=== PATIENT | male | born 1950 | race Caucasian/White ===

== ENCOUNTER → 2018-10-24 | Outpatient (CLI) | payer MEDICARE ==
[~2018-10-24] MED LIST: ALLOPURINOL300 MG PO; CLONAZEPAM0.5 MG PO; CYCLOBENZAPRINE10 MG PO; DIOVAN HCT 1601 EACH PO; DIVALPROEX SOD250 M1 PO; ESCITALOPRAM OX20 MG PO; KEFLEX500 MG; METFORMIN HCL1000 MG PO; MOBIC7.5 MG PO; PANTOPRAZOLE SO40 MG PO; SINGULAIR10 MG PO; TYLENOL WITH C1 EACH PO
--- NOTE | 2018-10-24 15:33 | Diagnostic Imaging Report ---
Bone Scan, delayed phase INDICATION: Prostate cancer; staging. Left shoulder pain x3 weeks. COMPARISON: Prior bone scan 07/28/2013; no recent cross-sectional body imaging REPORT: Approximately 3 hours following intravenous administration of 27.5 mCi of Tc-99m MDP, delayed total body images in the anterior and posterior projections and selected spot images were obtained. Single focus of markedly increased tracer is seen at the inferior tip of the right scapula. Degenerative changes are noted in the lower lumbar spine and in the hands. Otherwise, distribution of tracer activity is unremarkable throughout the skeletal system. No abnormal accumulation of tracer is seen in the soft tissues or urinary tract. IMPRESSION: 1. Acute osteoblastic process in the inferior tip of the right scapula is nonspecific in appearance but worrisome for solitary bone metastasis. It was not present on the prior bone scan of 07/28/2013. Correlation with CT is warranted. 2. No acute osteoplastic process in the left shoulder to suggest an etiology of the patient's left shoulder pain. Signed by: Dr. Helena Payne M.D. on 10/24/2018 3:30 PM
== END ==
LOC: NM 07:54
PROVIDERS: ATTEND Internal Medicine Medical Oncology
DX: C61 Malignant neoplasm of prostate (principal)
CPT/HCPCS: 78306; A9503

== ENCOUNTER → 2019-07-15 | Day surgery (SDC) | payer MEDICARE ==
[2019-07-11 11:51] LABS: BASOPHILS # (AUTO) 0.1 (0.0-0.1); BASOPHILS % 1.2 % (0.0-1.0); EOSINOPHILS # (AUTO) 0.5 (0.0-0.4); EOSINOPHILS % 5.6 % (0.0-6.0); HEMATOCRIT 40.8 % (38.2-49.6); HEMOGLOBIN 13.6 g/dL (14.0-18.0); LYMPHOCYTES # (AUTO) 1.8 (1.0-3.2); LYMPHOCYTES % 21.9 % (18.0-39.1); MEAN CORPUSCULAR HEMOGLOBIN 29.4 pg (28-32); MEAN CORPUSCULAR HGB CONC 33.3 g/dL (31-35); MEAN CORPUSCULAR VOLUME 88.3 fL (81-99); MONOCYTES # (AUTO) 0.7 (0.2-0.8); MONOCYTES % 8.4 % (4.4-11.3); NEUTROPHILS # (AUTO) 5.2 (2.1-6.9); NEUTROPHILS % 62.7 % (38.7-80.0); PLATELET COUNT 359 x10e3/uL (140-360); RED BLOOD COUNT 4.62 x10e6/uL (4.3-5.7); RED CELL DISTRIBUTION WIDTH 12.7 % (11.7-14.4)
[2019-07-11 12:13] LABS: ALANINE AMINOTRANSFERASE 11 IU/L (0-55); ALBUMIN 3.9 g/dL (3.5-5.0); ALBUMIN/GLOBULIN RATIO 1.1 (0.8-2.0); ALKALINE PHOSPHATASE 105 IU/L (40-150); ANION GAP 15.8 mmol/L (8-16); BLOOD UREA NITROGEN 12 mg/dL (7-26); BUN/CREATININE RATIO 14 (6-25); CALCIUM 10.4 mg/dL (8.4-10.2); CARBON DIOXIDE 29 mmol/L (22-29); CHLORIDE 100 mmol/L (98-107); CREATININE, SERUM 0.84 mg/dL (0.72-1.25); EST GLOMERULAR FILTRATION RATE > 60 ML/MIN (60-); GLUCOSE 150 mg/dL (74-118); POTASSIUM 4.8 mmol/L (3.5-5.1); SODIUM 140 mmol/L (136-145)
[2019-07-15] VITALS (10 sets, daily range): BP systolic 148–168; BP diastolic 67–79
[~2019-07-15] VITALS: Ht 177.8 cm; Wt 81.6 kg
[~2019-07-15] MED LIST changes: +ALPRAZOLAM 0.5 MG TAB ONE; +AMLODIPINE BESYL5 MG PO; +ASPIR 8181 MG PO; +ASPIRIN 325 MG TAB ONE; +CLOPIDOGREL75 MG PO; +DIPHENHYDRAMINE HCL 25 MG CAP ONE; +FENTANYL CITRATE/PF 100MCG/2 ML INJ ONE; +HEPARIN SOD/SOD CHLORIDE 2,000 ML ONE; +HYDROCHLOROTHIA25 MG PO; +IOPAMIDOL 300MG/ML 100 ML INFUS..BTL IV ONE; +LANTUS 3ML100 UNITS/ SC; +LIDOCAINE HCL 2% LOCAL 20 ML VIAL ONE; +LOSARTAN POTAS100 MG PO; +MIDAZOLAM HCL 2 MG/2 ML VIAL ONE; +NAMENDA10 MG PO; +PRASUGREL 10 MG TAB ONE; +PRAVASTATIN SOD40 MG PO; +SODIUM CHLORIDE 0.9% 1000ML 1,000 ML ONE; +VERAPAMIL HCL 2.5 MG/ML 2 ML VIAL ONE; +XTANDI40 MG PO; +[UNRECOGNIZED DRUG - OTHER] PO
--- OUTSIDE RECORDS SUMMARY | 2019-07-15 13:14 | XMS REPORT ---
Author Author [facility] Address Unknown Phone Unavailable Care Team Providers Care [employer] Name Role Phone JD GONZALEZ Unavailable Unavailable Problems This patient has no known problems. Allergies, Adverse Reactions, Alerts This patient has no known allergies or adverse reactions. Medications This patient has no known medications. Results Test Description Test Time Test Comments Text Results Atomic Results Result Comments BONE and/or JOINT WHOLE BODY 2018-10-24 15:18:00 [place] [address] Patient Name: LINDSEY MELTON MR #: [id number] : 1950 Age/Sex: 67/M Req #: [id number] [facility] Physician: Ordered by: JD GONZALEZ MD Report #: [id number] Location: [place] Room/Bed: Procedure: [id number] NM/BONE and/or JOINT WHOLE BODY Exam Date: 10/24/18 Exam Time: 0810 REPORT STATUS: Signed Bone Scan, delayed phase INDICATION: Prostate cancer; staging. Left shoulder pain x3 weeks. COMPARISON: Prior bone scan 07/28/2013; no recent cross-sectional body imaging REPORT: Approximately 3 hours following intravenous administration of 27.5 mCi of Tc-99m MDP, delayed total body images in the anterior and posterior projections and selected spot images were obtained. Single focus of markedly increased tracer is seen at the inferior tip of the right scapula. Degenerative changes are noted in the lower lumbar spine and in the hands. Otherwise, distribution of tracer activity is unremarkable throughout the skeletal system. No abnormal accumulation of tracer is seen in the soft tissues or urinary tract. IMPRESSION: 1. Acute osteoblastic process in the inferior tip of the right scapula is nonspecific in appearance but worrisome for solitary bone metastasis. It was not present on the prior bone scan of 07/28/2013. Correlation with CT is warranted. 2. No acute osteoplastic process in the left shoulder to suggest an etiology of the patient's left shoulder pain. Signed by: Dr. Piyush Larose M.D. on 10/24/2018 3:30 PM Dictated By: PIYUSH LAROSE MD 1530 Transcribed By: JANEEN on 10/24/18 1530 COPY TO: JD GONZALEZ MD
--- NOTE | 2019-07-15 16:15 | NUR ---
bedside report received from Lenny Kingston RN. Alert oriented and appropriate, PERRLA, respirations even and unlabored to room air. Pulses x4 extremities equal and faint. Cap fill brisk < 3 sec , + neurovascular function to right hand. Skin warm and dry integrity appears intact. IV 20g to left forearm presents healthy w/o s/s of infiltration or complaint. Abdomen soft and supple. pt offered toileting, denies need to urinate or defecate. Personal affects with patient. Family called to bedside. Pt and family verbalizes understanding of POC for discharge. right wrist precaution teaching initiated. pt on bedside cardiac/quality assurance monitor. Currently w/o complaint of pain or need. Nutrition and fluids provided. bed low and locked, side rails up x 2 , call light within reach.-cgf
--- NOTE | 2019-07-15 18:00 | NUR ---
TR band removal attempt started.
--- NOTE | 2019-07-15 18:30 | NUR ---
TR band with some oozing after 3 rd attempt to remove air. discussed manual hold with pt/family.
--- NOTE | 2019-07-15 19:00 | NUR ---
TR band removed and manual pressure applied for 20 minutes. hemostasis achieved. Wrist reminder applied. + neurovascular function present to right wrist. VS normal/stable for patient trend
--- NOTE | 2019-07-15 19:20 | NUR ---
Pt meets DC criteria. right radial assessed for s/s of complication and presence of hematoma. + neurovascular function intact. overall skin warm, dry, no discolor, and pulses present. IV removed from left forearm. Distal tip appears intact. VS WNL. Pt denies pain, sob, or need at this time. Family at bedside. Right wrist reminder applied per pt/family request. reinforced removal in AM. Review of discharge paperwork and follow up instructions. verbalized understanding. Pt to wheelchair and transported to front of hospital. Transferred to private vehicle under own strength w/o incident with DC paperwork in hand. - cgf
--- NOTE | 2019-07-16 12:25 | Operative Report ---
DATE OF PROCEDURE: 07/15/2019 SURGEON: Herman Flood MD INDICATIONS: Peripheral arterial disease with claudication. PROCEDURES PERFORMED: 1. Abdominal aortogram with abdominal aorta catheter placement. 2. Bilateral lower extremity angiograms. 3. Third-order catheter placement from the right radial artery to the right femoral artery. 4. Additional third-order catheter placement from the right radial artery to the left femoral artery. 5. Atherectomy and stent placement of the right femoral artery. 6. Secondary thrombectomy of the right femoral artery. 7. Deployment of right wrist TR band. COMPLICATIONS: None. RECOMMENDATIONS: 1. Staged angioplasty on the right posterior tibial artery via right pedal approach. 2. Staged left superficial femoral artery atherectomy via right radial approach. 3. Staged left anterior and posterior tibial atherectomy via left pedal approach. BLOOD LOSS: 2 mL. DESCRIPTION OF PROCEDURE: Access obtained in the right radial artery. A 6-Maltese sheath was placed. Heparin was administered for anticoagulation. Abdominal aortogram demonstrated mild disease of the abdominal aorta and iliacs bilaterally. The catheter was then advanced to the right femoral artery, 99% mid right superficial femoral artery stenosis, 80% right posterior tibial artery stenosis. Anterior tibial artery is completely occluded. The catheter was then advanced to the left femoral artery, 80% left femoral artery stenosis. Anterior and posterior tibial arteries were completely occluded. Peroneal artery on the left, 90% stenosis. A decision was made to intervene on the right femoral artery. Orbital atherectomy using a 1.5 mm CSI device was performed. Large amounts of visible thrombus, for which manual aspiration secondary thrombectomy was needed. A single 6 x 60 mm Terumo Misago stent was deployed, post dilated with a 5 mm balloon. Excellent end result. Less than 10% residual stenosis. One vessel runoff to the right foot. No complications. Right wrist sheath was removed. TR band applied. The patient discharged home the same day. MD ERON PurcellB/MODL /[id number]
== END | disposition home or self-care (01) ==
LOC: CATH LAB 13:11
PROVIDERS: ATTEND Internal Medicine Interventional Cardiology
DX: I70.213 Atherosclerosis of native arteries of extremities with intermittent claudication, bilateral legs (principal); I70.92 Chronic total occlusion of artery of the extremities; I25.118 Atherosclerotic heart disease of native coronary artery with other forms of angina pectoris; R00.2 Palpitations; I10 Essential (primary) hypertension; C61 Malignant neoplasm of prostate; Z01.812 Encounter for preprocedural laboratory examination; Z79.02 Long term (current) use of antithrombotics/antiplatelets; Z79.82 Long term (current) use of aspirin; Z79.84 Long term (current) use of oral hypoglycemic drugs; Z79.4 Long term (current) use of insulin
CPT/HCPCS: 36247; 36415; 37186; 37227; 75625; 80053; 85025; C1724; C1769 ×3; J2001; J2250; J3010; J7030; Q9967; 75716; 99152; 99153

== ENCOUNTER → 2019-07-22 | Day surgery (SDC) | payer MEDICARE ==
[2019-07-21 14:43] LABS: BASOPHILS # (AUTO) 0.1 (0.0-0.1); EOSINOPHILS # (AUTO) 0.5 (0.0-0.4); HEMATOCRIT 36.2 % (38.2-49.6); HEMOGLOBIN 12.2 g/dL (14.0-18.0); LYMPHOCYTES # (AUTO) 2.1 (1.0-3.2); LYMPHOCYTES % 20.5 % (18.0-39.1); MEAN CORPUSCULAR HEMOGLOBIN 29.3 pg (28-32); MEAN CORPUSCULAR HGB CONC 33.7 g/dL (31-35); MONOCYTES # (AUTO) 0.9 (0.2-0.8); MONOCYTES % 8.5 % (4.4-11.3); NEUTROPHILS # (AUTO) 6.5 (2.1-6.9); NEUTROPHILS % 64.7 % (38.7-80.0); PLATELET COUNT 365 x10e3/uL (140-360); RED BLOOD COUNT 4.16 x10e6/uL (4.3-5.7); RED CELL DISTRIBUTION WIDTH 12.4 % (11.7-14.4)
[2019-07-21 15:04] LABS: ALANINE AMINOTRANSFERASE 9 IU/L (0-55); ALBUMIN 3.5 g/dL (3.5-5.0); ALBUMIN/GLOBULIN RATIO 0.9 (0.8-2.0); ALKALINE PHOSPHATASE 83 IU/L (40-150); ANION GAP 14.2 mmol/L (8-16); BLOOD UREA NITROGEN 14 mg/dL (7-26); BUN/CREATININE RATIO 18 (6-25); CALCIUM 10.4 mg/dL (8.4-10.2); CARBON DIOXIDE 25 mmol/L (22-29); CHLORIDE 99 mmol/L (98-107); CREATININE, SERUM 0.77 mg/dL (0.72-1.25); EST GLOMERULAR FILTRATION RATE > 60 ML/MIN (60-); GLUCOSE 121 mg/dL (74-118); POTASSIUM 4.2 mmol/L (3.5-5.1); SODIUM 134 mmol/L (136-145)
[~2019-07-22] VITALS: Ht 177.8 cm; Wt 81.6 kg
[2019-07-22] VITALS (7 sets, daily range): BP systolic 141–188; BP diastolic 66–77
[~2019-07-22] MED LIST changes: -IOPAMIDOL 300MG/ML 100 ML INFUS..BTL IV ONE; +IOPAMIDOL 300MG/ML 50ML INFUS..BTL IV ONE; +NITROGLYCERIN/D5W 200 MCG/ML 250 ML ONE; +PROTAMINE SULFATE 10 MG/ML 5 ML VIAL ONE
--- NOTE | 2019-07-22 18:46 | NUR ---
184 Received pt to room ,bedside report received from Lenny CHOWDARY. Alert oriented and appropriate, PERRLA, respirations even and unlabored to room air. Pulses x4 extremities equal and strong. Pedal pulses PT/DP X4 and Cap fill brisk < 3 sec. Ok decrease Rt petal TR band at 2030pm and dc home today. Skin warm and dry integrity appears D/I IV 20g to rt forearm presents healthy w/o s/s of infiltration or complaint. Abdomen soft and supple. pt offered toileting, denies need to urinate or defecate. No personal affects with patient. Family at bedside. ds/rn Currently w/o complaint of pain or need. ds/rn
--- NOTE | 2019-07-22 19:18 | Operative Report ---
DATE OF PROCEDURE: 07/22/2019 SURGEON: Herman Flood MD INDICATION: Peripheral arterial disease. PROCEDURES PERFORMED: 1. Ultrasound-guided access into the right posterior tibial artery. 2. Unilateral extremity angiogram with third-order catheter placement. 3. Atherectomy and angioplasty of the right posterior tibial artery. 4. Secondary thrombectomy of the right posterior tibial artery. 5. Deployment of TR band on the right ankle. COMPLICATIONS: None. RECOMMENDATIONS: Staged intervention of the right anterior tibial artery. DESCRIPTION OF PROCEDURE: Access obtained in the right posterior tibial artery. Using ultrasound guidance, a 6-Icelandic sheath was placed. Heparin was administered for anticoagulation. A 90% proximal right posterior tibial artery stenosis was noted. Orbital atherectomy, large amounts of visible thrombus with manual aspiration thrombectomy using balloon angioplasty with 3 mm balloon, excellent end result. One vessel runoff to the right foot. TR band applied. The patient discharged home the same day. Herman Flood MD KSB/MODL /[id number]
--- NOTE | 2019-07-22 20:30 | NUR ---
2029 Pedal Compression removal: Initial Cuff volume 12 cc 2029 -2cc Removed No hematoma/bleeding noted with normal neurovascular function. 2044 -5cc Removed No hematoma/ bleeding noted with normal neurovascular function. 2099 -5cc Removed No hematoma/bleeding noted with normal neurovascular function. Air removal completed. Stasis achieved sterile 2x2,Tegaderm, Coban dressing No hematoma, bleeding noted with normal neurovascular function. Pt instructed on POC. Ds/Rn
--- NOTE | 2019-07-22 21:00 | NUR ---
2100 Pt meets DC criteria. RT pedal site assessed for s/s of complication and presence of hematoma. Skin warm, dry, no discolor, and pulses present. IV removed from rt forarm. Distal tip appears intact. VS WNL. Pt denies pain, sob, or need at this time. Family at XXXXX. Review of discharge paperwork and follow up instructions. verbalized understanding. Pt to wheelchair and transported to front of hospital. Transferred to private vehicle under own strength w/o incident with DC paperwork in hand. - ds/rn
== END | disposition home or self-care (01) ==
LOC: CATH LAB 14:40
PROVIDERS: ATTEND Internal Medicine Interventional Cardiology
DX: I70.201 Unspecified atherosclerosis of native arteries of extremities, right leg (principal); I25.10 Atherosclerotic heart disease of native coronary artery without angina pectoris; I10 Essential (primary) hypertension; I25.118 Atherosclerotic heart disease of native coronary artery with other forms of angina pectoris; R00.2 Palpitations; Z01.812 Encounter for preprocedural laboratory examination; Z79.84 Long term (current) use of oral hypoglycemic drugs; Z79.02 Long term (current) use of antithrombotics/antiplatelets; Z79.82 Long term (current) use of aspirin
CPT/HCPCS: 36415; 37186; 37229; 75710; 76937; 80053; 85025; C1724; C1769; J2001; J2250; J2720; J3010; J7030; Q9967; 37225; 99152; 99153

== ENCOUNTER → 2019-11-04 | Outpatient (CLI) | payer MEDICARE ==
[~2019-11-04] MED LIST changes: -ALPRAZOLAM 0.5 MG TAB ONE; -ASPIRIN 325 MG TAB ONE; -DIPHENHYDRAMINE HCL 25 MG CAP ONE; -FENTANYL CITRATE/PF 100MCG/2 ML INJ ONE; -HEPARIN SOD/SOD CHLORIDE 2,000 ML ONE; -IOPAMIDOL 300MG/ML 50ML INFUS..BTL IV ONE; -LIDOCAINE HCL 2% LOCAL 20 ML VIAL ONE; -MIDAZOLAM HCL 2 MG/2 ML VIAL ONE; -NITROGLYCERIN/D5W 200 MCG/ML 250 ML ONE; -PRASUGREL 10 MG TAB ONE; -PROTAMINE SULFATE 10 MG/ML 5 ML VIAL ONE; -SODIUM CHLORIDE 0.9% 1000ML 1,000 ML ONE; -VERAPAMIL HCL 2.5 MG/ML 2 ML VIAL ONE
--- NOTE | 2019-11-04 09:25 | Diagnostic Imaging Report ---
Abdominal ultrasound. History: Abdominal pain. Comparison: None available. Discussion: Liver measures 12 cm with normal echotexture. Main portal vein measures 1 cm with hepatopedal flow. Common bile duct measures 0.3 cm. Echogenic gallbladder sludge is visualized. Gallbladder wall measures 0.4 cm. Negative sonographic Shrestha sign. Kidneys normal in size. Spleen measures 8.2 cm. Visualized portions of the pancreas are unremarkable. Aorta measures 1.6 cm. Visualized portions of the IVC are unremarkable. IMPRESSION: Gallbladder sludge without evidence of acute cholecystitis. Signed by: Avi Amor MD on 11/04/2019 9:22 AM
== END ==
LOC: US 07:22
PROVIDERS: ATTEND Family Medicine
DX: R10.9 Unspecified abdominal pain (principal)
CPT/HCPCS: 76700

== ENCOUNTER → 2019-11-24 | Outpatient (CLI) | payer MEDICARE ==
[~2019-11-24] MED LIST changes: +VITAMIN B-121000 MCG PO
--- NOTE | 2019-11-24 18:26 | Diagnostic Imaging Report ---
Hepatobiliary Scan with Gallbladder Ejection Fraction Clinical information: Upper abdominal pain x1 month. Ultrasound showed gallbladder sludge. Technique: Following intravenous administration of 6.6 millicuries of Tc-99m mebrofenin, dynamic images of the abdomen in the anterior projection were obtained through 60 minutes. An additional static image was obtained at 90 minutes. Sincalide (CCK analog) 1.5 micrograms was administered intravenously over 30 minutes with additional imaging for determination of gallbladder ejection fraction. Discussion: Perfusion of the liver is normal. Extraction of tracer by the liver parenchyma is normal. Tracer appears promptly within the biliary tract. The gallbladder did not fill during the initial 60-minute dynamic sequence but did fill adequately by 90 minutes. Tracer is seen in the small bowel by 15 minutes. The gallbladder ejection fraction with sincalide is 4% (normal greater than 40%). Impression: 1. Filling of the gallbladder excludes acute cystic duct obstruction/acute cholecystitis. 2. The decreased gallbladder ejection fraction of 4% supports the clinical diagnosis of chronic cholecystitis/gallbladder dyskinesia. Signed by: Dr. Helena Payne M.D. on 11/24/2019 6:23 PM
== END ==
LOC: NM 08:19
PROVIDERS: ATTEND Family Medicine
DX: R93.5 Abnormal findings on diagnostic imaging of other abdominal regions, including retroperitoneum (principal)
CPT/HCPCS: 78227; A9537

== ENCOUNTER → 2019-12-29 | Outpatient (CLI) | payer MEDICARE ==
[~2019-12-29] MED LIST changes: +DIATRIZOATE MEGL/DIATRIZOA SOD 30 ML BTL PO ONE; +IOPAMIDOL 370 MG/ML 200 ML INFUS..BTL INJ ONE; +SODIUM CHLORIDE 0.9% 50ML 50 ML ONE
[2019-12-29 08:21] LABS: BLOOD UREA NITROGEN 16 mg/dL (7-26); BUN/CREATININE RATIO 19 (6-25); CREATININE, SERUM 0.83 mg/dL (0.72-1.25); EST GLOMERULAR FILTRATION RATE > 60 ML/MIN (60-)
--- NOTE | 2019-12-29 10:12 | Diagnostic Imaging Report ---
CT of the abdomen and pelvis, with contrast. History: Left upper quadrant abdominal pain. Comparison: Abdominal ultrasound from 11/04/2019. Technique: Multidetector CT scanning of the abdomen and pelvis was performed from the level of the lung bases to the inferior pubic rami after intravenous and oral administration of contrast. Coronal and sagittal multiplanar reformations were obtained. RADIATION DOSE: Total DLP: 684.77 mGy*cm Dose modulation, iterative reconstruction, and/or weight based adjustment of the mA/kV was utilized to reduce the radiation dose to as low as reasonably achievable. FINDINGS: The visualized lungs are clear. The imaged portion of the heart demonstrates no significant abnormalities. The liver is normal in size and attenuation. A granulomatous calcification is noted within the right hepatic lobe. No other focal hepatic abnormality is identified. Calcified gallstones are identified within the gallbladder. There is no evidence for gallbladder distention, wall thickening, or pericholecystic fluid. There is no intra or extrahepatic biliary ductal dilatation. The stomach, spine spleen, and pancreas are unremarkable. There is a 1.6 cm right adrenal nodule. There is a suspected 1 cm nodule within the left adrenal gland versus nodular thickening. The kidneys are normal in size and location and enhance symmetrically. A 2 mm nonobstructing stone is identified within the mid/inferior left kidney (axial image 33). Vascular calcifications are noted bilaterally. There is no evidence for hydronephrosis. No ureteral stone or dilatation is identified. The partially distended urinary bladder is unremarkable. Brachytherapy meets are noted within the prostate. The abdominal aorta is normal in caliber with extensive atherosclerotic calcifications within its course and branch vessels as well as small volume of crescentic mural thrombus. The IVC is unremarkable. The visualized loops of small and large bowel demonstrate no evidence of obstruction or inflammation. There is no ascites or perineal free air. No abnormally enlarged lymph nodes are identified within the abdomen or pelvis. Multiple sclerotic foci are identified within the thoracolumbar spine and pelvis concerning for osseous metastatic disease. A 1.9 cm sclerotic lesion is identified within the right posterior aspect of the T10 vertebral body. A 1.7 cm sclerotic lesion is identified within the right pubic rami. Multilevel degenerative changes noted within the thoracolumbar spine. There is no evidence for acute fracture. The extraperitoneal soft tissues are unremarkable. IMPRESSION: 1. Cholelithiasis without CT evidence for acute cholecystitis. 2. 2 mm nonobstructing stone identified within the left kidney. No evidence for hydronephrosis or obstructive uropathy. 3. 1.6 cm right adrenal nodule and nodular thickening of the left adrenal gland not definitively characterized on this single phase examination. 4. Scattered sclerotic lesions identified within the visualized osseous structures concerning for metastatic disease in this patient with history of prostate cancer. Signed by: Dr. Silvio Mooney MD on 12/29/2019 10:09 AM
== END ==
LOC: CT 07:33
PROVIDERS: ATTEND Internal Medicine Gastroenterology
DX: R10.12 Left upper quadrant pain (principal)
CPT/HCPCS: 36415; 74177; 82565; 84520; Q9967

== ENCOUNTER → 2020-01-05 | Day surgery (SDC) | payer MEDICARE, OTHER ==
[2019-12-23 07:57] LABS: BASOPHILS # (AUTO) 0.1 (0.0-0.1); BASOPHILS % 0.9 % (0.0-1.0); EOSINOPHILS # (AUTO) 0.3 (0.0-0.4); EOSINOPHILS % 3.9 % (0.0-6.0); HEMATOCRIT 39.8 % (38.2-49.6); HEMOGLOBIN 13.2 g/dL (14.0-18.0); LYMPHOCYTES # (AUTO) 1.5 (1.0-3.2); LYMPHOCYTES % 17.2 % (18.0-39.1); MEAN CORPUSCULAR HEMOGLOBIN 28.9 pg (28-32); MEAN CORPUSCULAR HGB CONC 33.2 g/dL (31-35); MEAN CORPUSCULAR VOLUME 87.1 fL (81-99); MONOCYTES # (AUTO) 0.7 (0.2-0.8); MONOCYTES % 8.2 % (4.4-11.3); NEUTROPHILS # (AUTO) 5.9 (2.1-6.9); NEUTROPHILS % 69.4 % (38.7-80.0); PLATELET COUNT 443 x10e3/uL (140-360); RED BLOOD COUNT 4.57 x10e6/uL (4.3-5.7); RED CELL DISTRIBUTION WIDTH 13.6 % (11.7-14.4)
--- NOTE | 2020-01-01 08:34 | Diagnostic Imaging Report ---
EXAMINATION: CHEST 2 VIEWS INDICATION: Pre-operative COMPARISON: None FINDINGS: LINES/TUBES:Left chest port terminates in the SVC. LUNGS:The lungs are well-inflated. No focal consolidation or pulmonary edema. PLEURA:No pleural effusion or pneumothorax. MEDIASTINUM:The cardiomediastinal silhouette appears normal in size and shape. BONES/SOFT TISSUES:No acute osseous injury. ABDOMEN:No free air under the diaphragm. IMPRESSION: No focal pneumonia or pulmonary edema. Signed by: Isak Campo MD on 01/01/2020 8:30 AM
[2020-01-01 08:51] LABS: ALANINE AMINOTRANSFERASE 6 IU/L (0-55); ALBUMIN 3.3 g/dL (3.5-5.0); ALBUMIN/GLOBULIN RATIO 0.9 (0.8-2.0); ALKALINE PHOSPHATASE 99 IU/L (40-150); ANION GAP 14.8 mmol/L (8-16); BLOOD UREA NITROGEN 11 mg/dL (7-26); BUN/CREATININE RATIO 14 (6-25); CALCIUM 9.8 mg/dL (8.4-10.2); CARBON DIOXIDE 26 mmol/L (22-29); CHLORIDE 103 mmol/L (98-107); CREATININE, SERUM 0.77 mg/dL (0.72-1.25); EST GLOMERULAR FILTRATION RATE > 60 ML/MIN (60-); GLUCOSE 127 mg/dL (74-118); POTASSIUM 4.8 mmol/L (3.5-5.1); SODIUM 139 mmol/L (136-145)
[~2020-01-05] MED LIST changes: +ACETAMINOPHEN 1000 MG/100 ML IV ONE; +BUPIVACAINE 0.25% 30ML SDV INJ ONE; +DEXAMETHASONE SOD PHOS INJ 4 MG/ML VIAL ONE; -DIATRIZOATE MEGL/DIATRIZOA SOD 30 ML BTL PO ONE; +ESMOLOL HCL 100MG/10ML 10 MG/ML VIAL ONE; +FENTANYL CITRATE/PF 100MCG/2 ML INJ ONE; +HYDRALAZINE HCL 20 MG/ML VIAL ONE; +HYDROCODONE/APAP 5MG-325MG TAB ONE; -IOPAMIDOL 370 MG/ML 200 ML INFUS..BTL INJ ONE; +LIDOCAINE HCL 2% LOCAL INJ 5 ML SDV VIAL INJ ONE; +ONDANSETRON HCL INJ 2MG/ML 2ML 2 MG/ML VIAL ONE; +PROPOFOL IV EMULSION 10 MG/ML 20 ML VIAL ONE; +ROCURONIUM BROMIDE 10 MG/ML 5ML VIAL IV ONE; -SODIUM CHLORIDE 0.9% 50ML 50 ML ONE
--- OUTSIDE RECORDS SUMMARY | 2020-01-05 05:58 | XMS REPORT ---
Author Author [facility] Organization [facility] Address [address] [place] [address] [address] [place] [address] Phone Unavailable Care Team Providers Care An/Syq 13 Nav/C2 Operator Name Role Phone Phan ANTONY Attphys Unavailable FLORESWILLIS Morrison Attphys Unavailable LINDENMARION Attphys Unavailable CARLOSJD Attphys Unavailable PalDaisy coombs Attphys Problems This patient has no known problems. Allergies, Adverse Reactions, Alerts This patient has no known allergies or adverse reactions. Medications This patient has no known medications. Procedures This patient has no known procedures. Encounters Start Date/Time End Date/Time [facility] Source 2018-09-27 06:30:00 2018-09-27 23:59:00 Outpatient Palvadi, Prit i [facility] [id number] [facility] 2018-09-27 06:30:00 2018-09-27 23:59:00 Outpatient Palvadi, Prit i [facility] SEH [id number] [facility] 2018-06-10 08:47:00 2018-06-10 23:59:00 Outpatient Palvadi, Prit i [facility] OIB [id number] [facility] Outpatient Imaging - [place] Results Test Description Test Time Test Comments Results Result Comments Source CHEST 2 VIEWS 2020-01-01 08:29:00 [facility] [address] [place], [place] [address] Patient Name: LINDSEY MELTON MR #: [id number] : 1950 Age/Sex: 69/M Req #: [id number] Adm Physician: Ordered by: DANIEL ANTONY MD Report #: [id number] Location: OR Room/Bed: Procedure: [id number] DX/CHEST 2 VIEWS Exam Date: 01/01/20 Exam Time: 799 REPORT STATUS: Signed EXAMINATION: CHEST 2 VIEWS INDICATION: Pre-operative COMPARISON: None FINDINGS: LINES/TUBES:Left chest port terminates in the SVC. LUNGS:The lungs are well-inflated. No focal consolidation or pulmonary edema. PLEURA:No pleural effusion or pneumothorax. MEDIASTINUM:The cardiomediastinal silhouette appears normal in size and shape. BONES/SOFT TISSUES:No acute osseous injury. ABDOMEN:No free air under the diaphragm. IMPRESSION: No focal pneumonia or pulmonary edema. Signed by: Marily Olivier MD on 01/01/2020 8:30 AM Dictated By: MARILY OLIVIER MD 9 Transcribed By: JANEEN on 01/01/20829 COPY TO: DANIEL ANTONY MD CT ABDOMEN/PELVIS W 2019-12-29 09:55:00 [place] [address] Patient Name: LINDSEY MELTON MR #: [id number] : 1950 Age/Sex: 69/M Req #: [id number] Adm Physician: Ordered by: WILLIS FLORES MD Report #: [id number] Location: CT Room/Bed: Procedure: [id number] CT/CT ABDOMEN/PELVIS W Exam Date: 12/29/19 Exam Time: 0840 REPORT STATUS: Signed CT of the abdomen and pelvis, with contrast. History: Left upper quadrant abdominal pain. Comparison: Abdominal ultrasound from 11/04/2019. Technique: Multidetector CT scanning of the abdomen and pelvis was performed from the level of the lung bases to the inferior pubic rami after intravenous and oral administration of contrast. Coronal and sagittal multiplanar reformations were obtained. RADIATION DOSE: Total DLP: 684.77 mGy*cm Dose modulation, iterative reconstruction, and/or weight based adjustment of the mA/kV was utilized to reduce the radiation dose to as low as reasonably achievable. FINDINGS: The visualized lungs are clear. The imaged portion of the heart demonstrates no significant abnormalities. The liver is normal in size and attenuation. A granulomatous calcification is noted within the right hepatic lobe. No other focal hepatic abnormality is identified. Calcified gallstones are identified within the gallbladder. There is no evidence for gallbladder distention, wall thickening, or pericholecystic fluid. There is no intra or extrahepatic biliary ductal dilatation. The stomach, spine spleen, and pancreas are unremarkable. There is a 1.6 cm right adrenal nodule. There is a suspected 1 cm nodule within the left adrenal gland versus nodular thickening. The kidneys are normal in size and location and enhance symmetrically. A 2 mm nonobstructing stone is identified within the mid/inferior left kidney (axial image 33). Vascular calcifications are noted bilaterally. There is no evidence for hydronephrosis. No ureteral stone or dilatation is identified. The p artially distended urinary bladder is unremarkable. Brachytherapy meets are noted within the prostate. The abdominal aorta is normal in caliber with extensive atherosclerotic calcifications within its course and branch vessels as well as small volume of crescentic mural thrombus. The IVC is unremarkable. The visualized loops of small and large bowel demonstrate no evidence of obstruction or inflammation. There is no ascites or perineal free air. No abnormally enlarged lymph nodes are identified within the abdomen or pelvis. Multiple sclerotic foci are identified within the thoracolumbar spine and pelvis concerning for osseous metastatic disease. A 1.9 cm sclerotic lesion is identified within the right posterior aspect of the T10 vertebral body. A 1.7 cm sclerotic lesion is identified within the right pubic rami. Multilevel degenerative changes noted within the thoracolumbar spine. There is no evidence for acute fracture. The extraperitoneal soft tissues are unremarkable. IMPRESSION: 1. Cholelithiasis without CT evidence for acute cholecystitis. 2. 2 mm nonobstructing stone identified within the left kidney. No evidence for hydronephrosis or obstructive uropathy. 3. 1.6 cm right adrenal nodule and nodular thickening of the left adrenal gland not definitively characterized on this single phase examination. 4. Scattered sclerotic lesions identified within the visualized osseous structures concerning for metastatic disease in this patient with history of prostate cancer. Signed by: Dr. Silvio Mooney MD on 12/29/2019 10:09 AM Dictated By: SILVIO MOONEY MD 100 Transcribed By: JANEEN on 12/29/19 100 COPY TO: WILLIS FLORES MD HEPTOBILIARY W PHARM 2019-11-24 18:18:00 [place] [address] Patient Name: LINDSEY MELTON MR #: [id number] : 1950 Age/Sex: 69/M Req #: [id number] Adm Physician: Ordered by: MARION CHEATHAM DO Report #: [id number] Location: ID Room/Bed: Procedure: [id number] NM/HEPTOBILIARY W PHARM Exam Date: 11/24/19 Exam Time: 929 REPORT STATUS: Signed Hepatobiliary Scan with Gallbladder Ejection Fraction Clinical information: Upper abdominal pain x1 month. Ultrasound showed gallbladder sludge. Technique: Following intravenous administration of 6.6 millicuries of Tc-99m mebrofenin, dynamic images of the abdomen in the anterior projection were obtained through 60 minutes. An additional static image was obtained at 90 minutes. Sincalide (CCK analog) 1.5 micrograms was administered intravenously over 30 minutes with additional imaging for determination of gallbladder ejection fraction. Discussion: Perfusion of the liver is normal. Extraction of tracer by the liver parenchym a is normal. Tracer appears promptly within the biliary tract. The gallbladder did not fill during the initial 60-minute dynamic sequence but did fill adequately by 90 minutes. Tracer is seen in the small bowel by 15 minutes. The gallbladder ejection fraction with sincalide is 4% (normal greater than 40%). Impression: 1. Filling of the gallbladder excludes acute cystic duct obstruction/acute cholecystitis. 2. The decreased gallbladder ejection fraction of 4% supports the clinical diagnosis of chronic cholecystitis/gallbladder dyskinesia. Signed by: Dr. Piyush Payne M.D. on 11/24/2019 6:23 PM Dictated By: PIYUSH PAYNE MD 22 Transcribed By: JANEEN on 11/24/191822 COPY TO: MARION CHEATHAM DO US ABDOMEN COMPLETE 2019-11-04 09:18:00 [place] [address] Patient Name: LINDSEY MELTON MR #: [id number] : 1950 Age/Sex: 68/M Req #: [id number] Adm Physician: Ordered by: MARION CHEATHAM DO Report #: [id number] Location: Room/Bed: Procedure: [id number] US/US ABDOMEN COMPLETE Exam Date: 11/04/19 Exam Time: 0806 REPORT STATUS: Signed Abdominal ultrasound. History: Abdominal pain. Comparison: None available. Discussion: Liver measures 12 cm with normal echotexture. Main portal vein measures 1 cm with hepatopedal flow. Common bile duct measures 0.3 cm. Echogenic gallbladder sludge is visualized. Gallbladder wall measures 0.4 cm. Negative sonographic Shrestha sign. Kidneys normal in size. Spleen measures 8.2 cm. Visualized portions of the pancreas are unremarkable. Aorta measures 1.6 cm. Visualized portions of the IVC are unremarkable. IMPRESSION: Gallbladder sludge without evidence of acute cholecystitis. Signed by: Avi Basurto MD on 9:22 AM Dictated By: AVI BASURTO DO 1 Transcribed By: JANEEN on 11/04/19921 COPY TO: MARION CHEATHAM DO BONE and/or JOINT WHOLE BODY 2018-10-24 15:18:00 [place] [address] Patient Name: LINDSEY MELTON MR #: [id number] : 1950 Age/Sex: 67/M Req #: [id number] Adm Physician: Ordered by: JD GONZALEZ MD Report #: [id number] Location: ID Room/Bed: Procedure: [id number] NM/BONE and/or JOINT WHOLE BODY Exam Date: [...] left shoulder pain. Signed by: Dr. Piyush Payne M.D. on 10/24/2018 3:30 PM Dictated By: PIYUSH PAYNE MD 1530 Transcribed By: JANEEN on 10/24/18 1530 COPY TO: JD GONZALEZ MD
--- OUTSIDE RECORDS SUMMARY | 2020-01-05 05:58 | XMS REPORT | Continuity of Care Document ---
Author Author Gregory Arnold moziy ЕкатеринаLINDSEY Organization [facility] Address Unknown Phone Unavailable Care Team Providers Care Director Of Enterprise Strategy Name Role Phone [employer] Information RADLIVE Unavailable Un available Problems Problem Status Onset Date Classification Date Reported Comments Source Vascular dementia with behavioral disturbance 10/03/2018 04/17/2019 [facility] F01.51 Active 09/23/2018 [facility] I65.29 - OCCLUSION AND STENOSIS OF UNSP Active 06/06/2018 [facility] Occlusion and stenosis of bilateral carotid arteries 04/17/2019 [facility], OPI D [facility] Medications Medication Details Route Status Patient Instructions Ordering Provider Order Date Source Omnipaque 350 injectable solution Notes: (same as:Omnipaque 350). WASTE: F/P - Black; E - Municipal Trash Bin Active 09/27/2018 [facility] Allergies, Adverse Reactions, Alerts Substance Category Reaction Severity Reaction type Status Date Reported Comments Source No Known Medication Allergies Assertion Drug aller gy [facility] Immunizations No Data Provided for This Section Results Order Name Results Value Reference Range Date Interpretation Comments Source CHEM PANEL POC Creatinine 0.9 0.5 - 1.4 09/27/2018 [facility] CHEM PANEL eGFR 87 09/27/2018 Result Comment: The eGFR is calculated using the CKD-EPI formula. In most young, healthy individuals the eGFR will be >90 mL/min/1.73m2. The eGFR declines with age. An eGFR of 60-89 may be normal in some populations, particularly the elderly, for whom the CKD-EPI formula has not been extensively validated. Use of the eGFR is not recommended in the following populations:

Individuals with unstable creatinine concentrations, including patients and those with serious co-morbid conditions.

Patients with extremes in muscle mass or diet.

The data above are obtained from the National Kidney Disease Education Program (NKDEP) which additionally recommends that when the eGFR is used in patients with extremes of body mass index for purposes of drug dosing, the eGFR should be multiplied by the estimated BMI. 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 3-D CT angiographic images are created using MIP technique at the acquisition workstation. The source images are also presented for interpretation. IV contrast: 100 mL of intravenous Omnipaque CT imaging performed at this location utilizes radiation dose optimization techniques which include one or more of the following: -Automated exposure control -Adjustment of the mA and/or kV accordin g to patient size -Use of iterative reconstruction technCORD:USE Cord Blood Bank ue CT Radiation Dose DLP 367 mGy-cm FINDINGS: Aortic arch: The great vessels originate from the aortic arch in the standard configuration. Mild atheromatous changes in the aortic arch. There is mild stenosis of the origin of the left common carotid artery.. There is severe left vertebral ostial stenosis and moderate right vertebral ostial stenosis. Carotid arteries: * The common carotid arteries are unremarkable. * There is heterogeneous calcified and noncalcified atheromatous plaquing in the right carotid bulb with approximately 40-45% stenosis at the origin of the right internal carotid artery. Rest of the right cervical internal carotid artery is unremarkable. There is complete occlusion of the right external carotid artery at the origin, rest of the external carotid artery is patent, likely by collateral filling. * On the left, there are carotid endarterectomy changes. There is mild 20-25% stenosis of the proximal internal carotid artery due to circumferential intimal thickening. Rest of the left cervical internal carotid artery is relatively small in caliber compared to the right but without focal stenosis. ECA is unremarkable. Vertebral arteries: The vertebral arteries have a normal course, caliber and contour. The visible intracranial vessels are unremarkable. The visible intracranial and extracranial venous structures are normal. The soft tissues of the neck and other incidental structures are normal. IMPRESSION: 1. A 40-45% stenosis of the origin of th e right ICA due to calcified and noncalcified atheromatous plaquing. 2. Occlusion of proximal 5 mm right ECA with distal reconstitution by collateral filling. 3. Left carotid endarterectomy. There is segmental 20-25% stenosis of the proximal ICA due to noncalcified plaques/intimal thickening. Rest of the left ICA is relatively small compared to the right but without focal stenosis. 4. Left ECA is widely patent. 5. Codominant vertebral arteries. Severe left vertebral ostial stenosis and moderate right vertebral ostial stenosis. 6. Mild stenosis at the origin of the le ft common carotid artery due to calcified plaques. (All qualitative and quantitative assess ments of carotid bifurcation and proximal internal carotid artery stenosis are made referencing the distal internal carotid artery {NASCET criteria}.) 09/27/2018 [facility] Carotid artery Doppler bilat US EXAM: US EXTRACRANIAL ARTERIAL DOPPLER DATE: 06/10/2018 INDICATION: - I65.29 Occlusion and stenosis of unspecified carotid artery ADDITIONAL INFORMATION: None. COMPARISON: None. TECHNIQUE: Multiplanar grayscale, color Doppler and spectral Doppler ultrasound images of the carotid and vertebral arteries. DISCUSSION: Right Carotid System: Intimal thickening and scattered plaque is seen in the common carotid artery and right carotid bulb. Scattered plaque is seen in the ICA as well. Right Common Carotid Artery (RCCA): 95 cm/s Right Internal Carotid Artery (CHULA): 164 cm/s in the proximal ICA Right External Carotid Artery (RECA): 64 cm/s ICA to CCA ratio 1.7 Right Vertebral Artery (RVA): 56 cm/s. Antegrade flow with normal waveform. Left Carotid System: Intimal thickening and scattered calcified plaque is seen in the common carotid artery and carotid bulb. Left Common Carotid Artery (LCCA): 102] cm/s Left Internal Carotid Artery (LICA): 168 cm/s in the proximal ICA Left External Carotid Artery (LECA): 392 cm/s focal narrowing identified ICA to CCA ratio 1.7 Left Vertebral Artery (LVA): 34 cm/s. Antegrade flow with normal waveform. IMPRESSION 1. Right internal carotid artery: Scatt ered intimal thickening and atherosclerotic plaque.. Elevated velocity in the proximal ICA compatible with 50-69% stenosis. 2. Left internal carotid artery: Scatte red intimal thickening and atherosclerotic plaque. Elevated velocity in the proximal ICA compatible with 50-69% stenosis. 3. Significant focal luminal narrowing noted in the left proximal ECA with significant increased velocity compatible with over 70% stenosis. 4. Vertebral arteries: Antegrade flow. However, parvus tardus waveforms are noted in the left vertebral artery which suggests proximal stenosis. According to the 2003 Concensus criteria: <50% stenosis: PSV <125 cm/sec, EDV <40cm/sec, ICA:CCA ratio <2 50-69% stenosis: PSV 125-230cm/sec, EDV 40-100cm/sec, ICA:CCA ratio 2-4 >70% stenosis: PSV >230cm/sec, EDV >100cm/sec, ICA:CCA ratio >4 Reference: Radiology. 2003 229:340-346. Carotid Artery Stenosis: [place]-scale and Doppler US diagnosis- Society of Radiologists in Ultrasound Consensus Conference. Stanislav EG, Robert CB, Deena GL, et. al. 06/10/2018 [facility] Consultation Notes No Data Provided for This Section Discharge Summaries No Data Provided for This Section History and Physicals No Data Provided for This Section Vital Signs No Data Provided for This Section Encounters Location Location Details Encounter Type Encounter Number Reason For Visit Attending Provider ADM Date DC Date Status Source [facility] Outpatient Imaging - [facility] [id number] Daisy Palvadi 06/10/2018 06/11/2018 [facility] Outpatient [id number] Daisy Palvadi 09/27/2018 09/28/2018 [facility] Procedures No Data Provided for This Section Assessment and Plan No Data Provided for This Section Plan of Care No Data Provided for This Section Social History Social History Date Source No data available for this section 09/28/2018 [facility] No data available for this section 06/11/2018 [facility] Family History No Data Provided for This Section Advance Directives No Data Provided for This Section Functional Status No Data Provided for This Section
--- OUTSIDE RECORDS SUMMARY | 2020-01-05 05:58 | XMS REPORT | Summary of Care ---
Author Author [facility] Outpatient Imaging - [facility] Organization [facility] Outpatient Imaging - [facility] Address Unknown Phone Unavailable Encounter HQ Nicolntr_carlos(FIN) [id number] Date(s): 06/10/18 - 06/10/18 [facility] Outpatient Imaging - [address], [address] [place] [phone] Encounter Diagnosis Occlusion and stenosis of bilateral carotid arteries (Final) - 07/02/18 Discharge Disposition: Home or Self Care Attending Physician: Daisy Walker MD Referring Physician: Daisy Walker MD Vital Signs No data available for this section Problem List No data available for this section Allergies, Adverse Reactions, Alerts No Known Medication Allergies Medications No data available for this section Results No data available for this section Immunizations No data available for this section Procedures No data available for this section Social History No data available for this section Assessment and Plan No data available for this section
--- OUTSIDE RECORDS SUMMARY | 2020-01-05 05:58 | XMS REPORT | Summary of Care ---
Author Author [facility] Organization [facility] Address Unknown Phone Unavailable Encounter HQ Lc(FIN) [id number] Date(s): 09/27/18 - 09/27/18 [facility] [address] [place] [address]- Encounter Diagnosis Vascular dementia with behavioral disturbance (Final) - 10/02/18 Occlusion and stenosis of bilateral carotid arteries (Final) - Discharge Disposition: Home or Self Care Attending Physician: Daisy Walker MD Referring Physician: Daisy Walker MD Vital Signs No data available for this section Problem List No data available for this section Allergies, Adverse Reactions, Alerts No Known Medication Allergies Medications Omnipaque 350 injectable solution 100 mL, Route: IVP, Drug Form: SOLN, kg, ONCALL, GFR > 45 mL/min, Start date: 09/27/18 9:00:00 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 Immunizations No data available for this section Procedures No data available for this section Social History No data available for this section Assessment and Plan No data available for this section
--- OUTSIDE RECORDS SUMMARY | 2020-01-05 05:58 | XMS REPORT | Summary of Care ---
Author Author [facility] Organization [facility] Address Unknown Phone Unavailable Encounter LINDA Platt(FRANCIA) [id number] Date(s): 09/27/18 - 09/27/[address] [facility] [address] [place] [address]- Discharge Disposition: Home or Self Care Attending Physician: Daisy Walker MD Referring Physician: Daisy Walker MD Vital Signs No data available for this section Problem List No data available for this section Allergies, Adverse Reactions, Alerts Substance Reaction Severity Status NKDA Active Medications Omnipaque 350 injectable solution 100 mL, Route: IVP, Drug Form: SOLN, kg, ONCALL, GFR > 45 mL/min, Start date: 09/27/18 9:00:00 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
--- NOTE | 2020-01-05 07:10 | NUR ---
SPIRITUAL CARE - Pre-Surgery Assessment: Pt in bed. Pt's at bedside. Pt reported supportive attention from family and friends. Intervention: I provided pastoral presence, hospitality, and sympathetic listening. I acquainted pt with availability of special police officer while hospitalized. Outcome: Pt expressed appreciation for visit. No need for follow up indicated at this time. BONNIE [facility] Spiritual Care Department O: [phone]
[2020-01-05 11:30] VITALS: BP 151/62
--- NOTE | 2020-01-05 13:20 | Operative Report ---
DATE OF PROCEDURE: 01/05/2020 SURGEON: Maksim Abarca MD PREOPERATIVE DIAGNOSES: Cholecystitis and cholelithiasis. POSTOPERATIVE DIAGNOSES: Cholecystitis and cholelithiasis. OPERATION PERFORMED: Laparoscopic cholecystectomy. ASSISTANTS: 1. Dr. Neftali Abarca. 2. JOB Ojeda. ANESTHESIA: General endotracheal. COMPLICATIONS: None. ESTIMATED BLOOD LOSS: Minimal. DESCRIPTION OF PROCEDURE: With the patient lying in bed in the supine position under good general endotracheal anesthesia, the abdomen was prepped with Betadine solution and draped in the usual manner. A Veress needle was introduced into the umbilicus and pneumoperitoneum was established without any difficulty. An 11 mm trocar was placed into the umbilicus and a 10 mm video laparoscope was placed into the intra-abdominal cavity. Under direct vision, three 5 mm trocars were placed in the right subcostal region. Video laparoscopy at this point revealed that the gallbladder was totally covered up with adhesions and the right lobe of the liver with the duodenum and the antrum being stuck to the lower half of the gallbladder. The rest of the abdominal exploration appeared to be within normal limits. The adhesions to the gallbladder and the right lobe of the liver were then slowly and carefully taken down until we could visualize the gallbladder. The gallbladder was then retracted upward and all the adhesions were taken down all the way down to the neck, the duodenum and the stomach from the neck of the gallbladder. After this was done, the peritoneum overlying the neck of the gallbladder was then opened and the cystic duct was identified. The cystic duct was followed to its junction with the common duct. The cystic duct was then circumferentially dissected away from the common duct, doubly clipped, and divided. The cystic artery was similarly doubly clipped and divided. The gallbladder was then slowly and carefully taken off the liver bed using the cautery scissors and perfect hemostasis was ascertained. The gallbladder was then grasped through the umbilical port and removed without any difficulty. Video laparoscopy was then again carried out. The liver bed was found to be perfectly dry. All the excess fluid was aspirated. The pneumoperitoneum was evacuated and all the trocars were removed under direct vision. The midline fascia at the umbilicus was then closed with a [id number] of 0 Vicryl. All layers were infiltrated on the way out with solution of 0.25% Marcaine. Subcutaneous tissue was approximated with 3-0 Vicryl and the skin was closed with subcuticular 5-0 Vicryl. Benzoin, Steri-Strips, and Band-Aids were applied. The sponge, lap, and needle count was correct. The patient tolerated the procedure well and returned to the recovery room in stable condition. MD MEDARDO Castro/OWEN /[id number]
== END | disposition home or self-care (01) ==
LOC: OR 05:51
PROVIDERS: ATTEND Surgery
DX: K80.10 Calculus of gallbladder with chronic cholecystitis without obstruction (principal); K82.8 Other specified diseases of gallbladder; C61 Malignant neoplasm of prostate; G47.33 Obstructive sleep apnea (adult) (pediatric); K21.9 Gastro-esophageal reflux disease without esophagitis; E11.9 Type 2 diabetes mellitus without complications; I10 Essential (primary) hypertension; E78.5 Hyperlipidemia, unspecified; I25.10 Atherosclerotic heart disease of native coronary artery without angina pectoris; I25.118 Atherosclerotic heart disease of native coronary artery with other forms of angina pectoris; F32.9 Major depressive disorder, single episode, unspecified; F17.210 Nicotine dependence, cigarettes, uncomplicated; Z01.810 Encounter for preprocedural cardiovascular examination; Z01.812 Encounter for preprocedural laboratory examination; Z01.818 Encounter for other preprocedural examination; Z11.59 Encounter for screening for other viral diseases; Z79.899 Other long term (current) drug therapy; Z79.02 Long term (current) use of antithrombotics/antiplatelets; Z79.84 Long term (current) use of oral hypoglycemic drugs; Z79.82 Long term (current) use of aspirin; Z79.4 Long term (current) use of insulin; Z86.73 Personal history of transient ischemic attack (TIA), and cerebral infarction without residual deficits; Z95.5 Presence of coronary angioplasty implant and graft
CPT/HCPCS: 36415 ×3; 47562; 71046; 80053; 82948; 85025; 87635 ×2; 88304; 93005 ×2; C1766; J3010; J0360; J1100; J2001; J2405

== ENCOUNTER → 2022-04-05 | Outpatient (CLI) | payer MEDICARE ==
[~2022-04-05] MED LIST changes: -ACETAMINOPHEN 1000 MG/100 ML IV ONE; -BUPIVACAINE 0.25% 30ML SDV INJ ONE; -DEXAMETHASONE SOD PHOS INJ 4 MG/ML VIAL ONE; -ESMOLOL HCL 100MG/10ML 10 MG/ML VIAL ONE; -FENTANYL CITRATE/PF 100MCG/2 ML INJ ONE; -HYDRALAZINE HCL 20 MG/ML VIAL ONE; -HYDROCODONE/APAP 5MG-325MG TAB ONE; +IOPAMIDOL 300MG/ML 100 ML INFUS..BTL IV ONE; -LIDOCAINE HCL 2% LOCAL INJ 5 ML SDV VIAL INJ ONE; -ONDANSETRON HCL INJ 2MG/ML 2ML 2 MG/ML VIAL ONE; -PROPOFOL IV EMULSION 10 MG/ML 20 ML VIAL ONE; -ROCURONIUM BROMIDE 10 MG/ML 5ML VIAL IV ONE
[2022-04-05 14:51] LABS: CREATININE, SERUM 1.03 mg/dL (0.72-1.25)
== END ==
LOC: CT 14:00
PROVIDERS: ATTEND Family Medicine
DX: R10.11 Right upper quadrant pain (principal)
CPT/HCPCS: 36415; 74177; 82565; 84520; Q9967